=== PATIENT | male | born 1965 | race Caucasian/White ===

== ENCOUNTER 2021-09-30 15:04 | Emergency (ER) | payer MEDICARE ==
[2021-09-30] MEDS ORDERED: Ondansetron 4 MG Tab.DIS PO ONE (16:29)
== END 2021-09-30 17:19 | disposition home or self-care (01) ==
LOC: JP.ED 15:04
DX: E11.628 Type 2 diabetes mellitus with other skin complications (principal); L08.9 Local infection of the skin and subcutaneous tissue, unspecified; I10 Essential (primary) hypertension; E66.9 Obesity, unspecified; Z88.1 Allergy status to other antibiotic agents; Z68.41 Body mass index [BMI] 40.0-44.9, adult
CPT/HCPCS: 36415; 73630-RT; 85025; 86140; 99283; 99283-25; Q0162

== ENCOUNTER 2022-11-07 07:21 | Emergency (ER) | payer MEDICARE ==
[2022-11-07 08:16] LABS: BASOPHILS ABSOLUTE AUTO 0.04 K/uL (0.00-0.10); BASOPHILS PERCENT AUTO 0.6 % (0.1-1.3); EOSINOPHILS ABSOLUTE AUTO 0.16 K/uL (0.00-0.40); EOSINOPHILS PERCENT AUTO 2.3 % (0.0-5.4); HEMATOCRIT 43.1 % (38.4-49.7); HEMOGLOBIN 14.5 g/dL (12.9-16.9); IMMATURE GRAN ABSOLUTE AUTO 0.03 K/uL (0.00-0.23); IMMATURE GRAN PERCENT AUTO 0.4 % (0.0-0.7); LYMPHOCYTES ABSOLUTE AUTO 2.76 K/uL (0.8-3.3); LYMPHOCYTES PERCENT AUTO 39.8 % (11.4-47.7); MEAN CORPUSCULAR HEMOGLOBIN 30.6 pg (31.6-35.5); MEAN CORPUSCULAR HGB CONC 33.6 g/dL (31.6-35.5); MEAN CORPUSCULAR VOLUME 90.9 fL (81.4-99.0); MONOCYTES ABSOLUTE AUTO 0.75 K/uL (0.20-0.90); MONOCYTES PERCENT AUTO 10.8 % (3.3-12.6); NEUTROPHILS ABSOLUTE AUTO 3.19 K/uL (1.0-7.6); NEUTROPHILS PERCENT AUTO 46.1 % (40.0-78.1); PLATELET COUNT,PLT 157 K/uL (130-375); RED BLOOD CELL COUNT 4.74 M/uL (4.14-5.76); WHITE BLOOD CELL COUNT,WBC 6.9 K/uL (3.2-11.0)
[2022-11-07 08:34] LABS: ANION GAP 11.6 mmol/L (5.0-14.0); CALCIUM 8.9 mg/dL (8.5-10.1); EST CRCL DRUG DOSING (CG) 94.33 mL/min; POTASSIUM,K 3.9 mmol/L (3.6-5.2)
[2022-11-07 08:36] LABS: PROTHROMBIN TIME 9.9 sec (9.2-10.6); PTT,PARTIAL THROMBOPLSTIN TIME 25.4 sec (21.8-27.3)
== END 2022-11-07 08:59 | disposition home or self-care (01) ==
LOC: JP.ED 07:21
DX: S90.32XA Contusion of left foot, initial encounter (principal); J45.909 Unspecified asthma, uncomplicated; I10 Essential (primary) hypertension; E66.9 Obesity, unspecified; Z68.42 Body mass index [BMI] 45.0-49.9, adult; Z88.1 Allergy status to other antibiotic agents; Z79.899 Other long term (current) drug therapy
CPT/HCPCS: 36415; 73610-26-LT; 73610-LT; 73630-26-LT; 73630-LT; 80048; 85025; 85610; 85730; 86140; 93971-26-LT; 93971-LT; 99284

== ENCOUNTER 2024-01-07 17:31 | Emergency (ER) | payer MEDICARE ==
[2024-01-07] MEDS: methylPREDNISolone Acetate 80 MG/ML SDV IM ONE (18:08)
[2024-01-07] MEDS: diphenhydrAMINE 50 MG/ML SDV IM ONE (18:08)
[2024-01-07 18:30] LABS: BASOPHILS ABSOLUTE AUTO 0.03 K/uL (0.00-0.10); BASOPHILS PERCENT AUTO 0.5 % (0.1-1.3); EOSINOPHILS ABSOLUTE AUTO 0.15 K/uL (0.00-0.40); EOSINOPHILS PERCENT AUTO 2.5 % (0.0-5.4); HEMATOCRIT 43.2 % (38.4-49.7); HEMOGLOBIN 15.3 g/dL (12.9-16.9); IMMATURE GRAN ABSOLUTE AUTO 0.04 K/uL (0.00-0.23); IMMATURE GRAN PERCENT AUTO 0.7 % (0.0-0.7); LYMPHOCYTES ABSOLUTE AUTO 2.12 K/uL (0.8-3.3); LYMPHOCYTES PERCENT AUTO 34.9 % (11.4-47.7); MEAN CORPUSCULAR HEMOGLOBIN 31.4 pg (31.6-35.5); MEAN CORPUSCULAR HGB CONC 35.4 g/dL (31.6-35.5); MEAN CORPUSCULAR VOLUME 88.5 fL (81.4-99.0); MONOCYTES ABSOLUTE AUTO 0.66 K/uL (0.20-0.90); MONOCYTES PERCENT AUTO 10.9 % (3.3-12.6); NEUTROPHILS ABSOLUTE AUTO 3.08 K/uL (1.0-7.6); NEUTROPHILS PERCENT AUTO 50.5 % (40.0-78.1); PLATELET COUNT,PLT 166 K/uL (130-375); RED BLOOD CELL COUNT 4.88 M/uL (4.14-5.76); WHITE BLOOD CELL COUNT,WBC 6.1 K/uL (3.2-11.0)
[2024-01-07 18:57] LABS: ALANINE AMINOTRANSFERASE,ALT 51 U/L (12-78); ALBUMIN 3.8 g/dL (3.4-5.0); ALKALINE PHOSPHATASE 80 U/L (46-116); ASPARTATE AMNIOTRANSFERASE,AST 30 U/L (15-37); BILIRUBIN TOTAL 0.5 mg/dL (0.2-1.0); BLOOD UREA NITROGEN,BUN 14 mg/dL (7-18); CALCIUM 9.4 mg/dL (8.5-10.1); CARBON DIOXIDE,CO2 24 mmol/L (21-32); CHLORIDE,CL 99 mmol/L (100-108); CREATININE 1.1 mg/dL (0.8-1.3); EST CRCL DRUG DOSING (CG) 84.74 mL/min; ESTIMATED GFR 79 mL/min (>60); GLUCOSE RANDOM 302 mg/dL (74-106); POTASSIUM,K 4.3 mmol/L (3.6-5.2); PRO B-TYPE NATRIUR PEPT,BNPPRO 15 pg/mL (5-125); PROTEIN TOTAL,TP 7.5 g/dL (6.4-8.2); SODIUM,NA 137 mmol/L (140-148)
[2024-01-07 18:58] LABS: ANION GAP 18.3 mmol/L (5.0-14.0)
[2024-01-07] MEDS: Iopamidol 612 MG/ML 100 ML Bottle IV SCH (20:50)
[2024-01-07] MEDS: Sodium Chloride 0.9% 80 ML IV SCH (20:50)
[2024-01-07] MEDS: cefTRIAXone 2 GM in Sodium Chloride 0.9% 50 ML IV ONE (22:19)
[2024-01-07] MEDS: Dexamethasone 4 MG/ML SDV IVPUSH ONE (22:45)
[2024-01-08] MEDS: LORazepam 2 MG/ML SDV IVPUSH ONE (00:34)
[2024-01-08] MEDS: Acetaminophen/oxyCODONE 325-10 MG Tab PO ONE (05:23)
[2024-01-08] MEDS: Pregabalin 75 MG Cap PO ONE (05:23)
[2024-01-08] MEDS: amLODIPine 5 MG Tab PO SCH (08:05)
[2024-01-08] MEDS: Metoprolol Succinate 50 MG Tab.ER PO SCH (08:07)
[2024-01-08] MEDS: Morphine 2 MG/ML SYRINGE IVPUSH ONE (12:06)
[2024-01-08] MEDS ORDERED: Succinylcholine 200 MG/10 ML MDV ONE (13:10)
[2024-01-08] MEDS ORDERED: Propofol 200 MG/20 ML SDV ONE (13:10)
[2024-01-08] MEDS: propofoL 100 ML IV SCH (14:07)
[2024-01-08] MEDS ORDERED: Propofol 200 MG/20 ML SDV IVPUSH ONE ×2 (14:17→14:19)
[2024-01-08] MEDS: Propofol 200 MG/20 ML SDV IVPUSH ONE ×3 (14:17→15:07)
[2024-01-08] MEDS: Rocuronium 50 MG/5 ML Vial IVPUSH ONE ×2 (14:25→14:45)
[2024-01-08] MEDS: Sodium Chloride 0.9% 1,000 ML IV SCH (14:50)
[2024-01-08] MEDS ORDERED: cefTRIAXone 1 GM in Sodium Chloride 0.9% 50 ML IV ONE (15:10)
[2024-01-08] MEDS: cefTRIAXone 1 GM in Sodium Chloride 0.9% 50 ML IV ONE (15:25)
[2024-01-08] MEDS: Sodium Chloride 0.9% 1,000 ML IV ONE (15:41)
[2024-01-08] MEDS ORDERED: fentaNYL 2,500 MCG in Sodium Chloride 0.9% 200 ML IV SCH (16:00)
[2024-01-08] MEDS: fentaNYL 2,500 MCG in Sodium Chloride 0.9% 200 ML IV SCH (16:12)
== END 2024-01-08 16:34 ==
LOC: JP.ED 17:31
DX: J39.2 Other diseases of pharynx (principal); I10 Essential (primary) hypertension; E11.9 Type 2 diabetes mellitus without complications; Z88.1 Allergy status to other antibiotic agents; Z88.2 Allergy status to sulfonamides; Z88.8 Allergy status to other drugs, medicaments and biological substances; Z79.85 Long-term (current) use of injectable non-insulin antidiabetic drugs; Z79.899 Other long term (current) drug therapy
CPT/HCPCS: 31500; 36415; 51702; 70360; 70491; 71045; 80053; 83880; 85025; 87651; 96365; 96366; 96367; 96372; 96375; 99285; A9270; J0330; J0696; J1100; J1200; J2060; J2270; J2704; J3010; J3490; J7030; J7050; Q9967

== ENCOUNTER 2024-01-27 16:31 | Emergency (ER) | payer MEDICARE ==
[2024-01-27] MEDS: methylPREDNISolone Sodium Succinate 125 MG/2 ML SDV IVPUSH ONE (17:37)
== END 2024-01-27 18:23 | disposition home or self-care (01) ==
LOC: JP.ED 16:31
DX: T78.3XXA Angioneurotic edema, initial encounter (principal); I10 Essential (primary) hypertension; J45.909 Unspecified asthma, uncomplicated; E66.9 Obesity, unspecified; Z68.42 Body mass index [BMI] 45.0-49.9, adult; E11.9 Type 2 diabetes mellitus without complications; Z79.899 Other long term (current) drug therapy; Z79.4 Long term (current) use of insulin; Z88.8 Allergy status to other drugs, medicaments and biological substances; Z88.1 Allergy status to other antibiotic agents; Z88.2 Allergy status to sulfonamides
CPT/HCPCS: 96374; 99282; J2919; 99283